=== PATIENT | female | born 1955 | race Caucasian/White ===

== ENCOUNTER 2019-12-27 12:35 | Emergency (ER) | payer BC, SELFPAY ==
[2019-12-27 12:50] VITALS: BP 105/51; PULSE 82; RESP 20; TEMP 37.3; O2SAT 99
--- NOTE | 2019-12-27 13:07 | ED.URI ---
HPI - URI/Sore Throat General Chief Complaint: Upper Respiratory Infection Stated Complaint: cough/sore throat/ear pn Time Seen by Provider: 12/27/19 13:00 Source: patient Mode of arrival: ambulatory Limitations: no limitations History of Present Illness HPI Narrative: Shyam Galloway is a 64 yo female with a PMH of Ann, who comes with dry cough, sinus congestion, L ear pain since Sat and is worsening. Related Data Home Medications Medication Instructions Recorded Confirmed mirabegron 50 mg tablet,extended 50 mg PO DAILY 11/12/19 12/27/19 release 24 hr Allergies Allergy/AdvReac Type Severity Reaction Status Date / Time mold Allergy Unknown Itchy eyes Verified 11/12/19 10:40 Penicillins Allergy Unknown Skin Verified 11/12/19 10:40 Reaction Sulfa (Sulfonamide Allergy Unknown Skin Verified 11/12/19 10:40 Antibiotics) Reaction sulfamethizole Allergy Unknown Skin Verified 11/12/19 10:40 Reaction SULFAMERAZINE (Generic Allergy Y Uncoded 11/12/19 10:40 Allergy) Review of Systems Review of Systems: Narrative: CONSTITUTIONAL: Denies fever, chills, sweats. EYES: Denies visual changes, redness, discharge. ENT: Hasrhinorrhea, congestion, sore throat, L otalgia. CARDIOVASCULAR: Denies chest pain, palpitations, edema. RESPIRATORY: Denies dyspnea, wheezing, dry cough GASTROINTESTINAL: Denies abdominal pain, nausea, vomiting, diarrhea. GENITOURINARY: Denies dysuria, hematuria, abnormal discharge SKIN: Denies rash or itching. NEUROLOGIC: Denies numbness, or focal weakness. PSYCHIATRIC: Denies anxiety or depression. PMFSH Family History Family History Father Family history of malignant neoplasm of skin Diabetes mellitus Family history of cardiovascular disease Mother Family history of malignant neoplasm of skin Sibling Carcinoma of colon Other Family history of elevated blood lipids Social History Social History Smoking status: Never smoker Alcohol intake: current Comments At time of signature, I agree with nursing past medical, surgical, social and family history. There is no relevant family history pertinent to the presenting complaint. Exam Narrative: Exam Narrative: GENERAL: This is a well-nourished, well-developed patient, in nmild distress. HEAD: normocephalic, atraumatic. EYES: PERRL. Sclera clear/white. Vision is grossly intact. EARS: External ears normal, . L ear erythema w effusion, Hearing grossly intact. NOSE: External nose normal with no obvious nasal discharge, nares withredness, no rhinorrhea. THROAT: Mucous membranes moist, posterior pharynx clear. NECK: Neck supple, non-tender CARDIOVASCULAR: Regular rate and rhythm without murmurs, gallops, or rubs. RESPIRATORY: Clear to auscultation. Breath sounds equal bilaterally. No wheezes, rales, or rhonchi. GASTROINTESTINAL: Abdomen soft, non-tender, SKIN: warm, intact with no suspicious lesions or rash, good texture and turgor. NEURO: awake, alert, and oriented to person, place and time. There were no obvious focal neurologic abnormalities. Steady gait EXTREMITIES: Normal range of motion. No edema. . BACK: Nontender without deformity or crepitance. . Course Course Emergency Course: started on cough medicine,prednisone Vital Signs Vital signs: Vital Signs Temperature 99.2 F 12/27/19 12:50 Pulse Rate 82 12/27/19 12:50 Respiratory Rate 20 12/27/19 12:50 Blood Pressure 105/51 L 12/27/19 12:50 Pulse Oximetry 99 12/27/19 12:50 Temperature 99.2 F 12/27/19 12:50 Pulse Rate 82 12/27/19 12:50 Respiratory Rate 20 12/27/19 12:50 Blood Pressure 105/51 L 12/27/19 12:50 Pulse Oximetry 99 12/27/19 12:50 MDM - URI/Sore Throat Differential Diagnosis Differential diagnosis: Likely upper respiratory infection, otitis media, sinusitis, viral infection and influenza Discharge
== END 2019-12-27 13:38 | disposition home or self-care (01) ==
PROVIDERS: Emergency Provider Nurse Practitioner; PCP Family Medicine
DX: J06.9 Acute upper respiratory infection, unspecified (principal); I73.00 Raynaud's syndrome without gangrene
CPT/HCPCS: 99213; G0463

== ENCOUNTER → 2022-08-21 09:07 | Outpatient (CLI) | payer MEDICARE, SELFPAY ==
--- NOTE | ~2022-08-21 | XR_ITS ---
EXAMINATION: XR hip BI 2V w AP pelvis DATE: 08/21/2022 09:30 INDICATION: Bilateral hip pain TECHNIQUE: AP view the pelvis and two views of each hip were obtained. COMPARISON: None. FINDINGS: Bone alignment is normal. There is no fracture. There is mild osteoarthritis of the hips. M ild to moderate osteitis pubis is noted. There is moderate lumbar spondylosis. IMPRESSION: 1. Mild osteoarthritis of the hips. Reviewed, dictated and finalized at location A.
--- NOTE | ~2022-08-21 | DEXA_ITS ---
Bone Density Report Name: LOBO CORMIER Age: 66 Sex: Female Ethnicity: White Date of : 1955 Indication: postmenopausal; screening for osteoporosis; height loss; Referring Provider: ABRAHAM EDMONDS Study: Bone densitometry was performed. Exam Date: August 21, 2022 Accession number: [id number] Bone Density: Region BMD T-score Z-score Classification AP Spine (L1-L4) 0.864 -1.7 0.1 Osteopenia Femoral Neck (Left) 0.680 -1.5 0.0 Osteopenia Total Hip (Left) 0.875 -0.5 0.7 Normal Femoral Neck (Right) 0.659 -1.7 -0.2 Osteopenia Total Hip (Right) 0.817 -1.0 0.2 Normal Total Hip Mean 0.846 -0.8 0.5 Normal World Health Organization criteria for BMD impression classify patients as: Normal (T-score at or above -1.0), Osteopenia (T-score between -1.0 and -2.5), or Osteoporosis (T-score at or below -2.5). 10-year Fracture Risk(1): Major Osteoporotic Fracture 8.4% Hip Fracture 1.1% Reported Risk Factors: [place] (), Neck BMD=0.659, BMI=20.2 (1) FRAX(R) Version 3.08. Fracture probability calculated for an untreated patient. Fracture probability may be lower if the patient has received treatment. Clinical Information Provided by Patient: Has used the following medications: Vitamin D, Calcium Patient maximum height was 67 Menopause Age: 56 Drinks caffeinated beverages Onset of menses at age 16 Number of children 3 Impression: The patient has low bone mass, based on the Total Spine T-score. The patient has an estimated ten-year risk of hip fracture of 1.1% and an estimated ten-year risk of major fracture of 8.4%, based on the WHO FRAX algorithm. Discussion: BONE DENSITY IS LOW AT ONE OR MORE SKELETAL SITES. This patient's lowest T-score is low at one or more skeletal sites. It meets the World Health Organization's (WHO) criteria for ?low bone mass? (T-score between -1.0 and -2.5). The patient's 10-year risk of fracture as calculated by FRAX is less than the threshold where pharmacological therapy is recommended by the National Osteoporosis Foundation (NOF). However, all treatment decisions require clinical judgment and consideration of individual patient factors, including patient preferences, comorbidities, previous drug use, risk factors not captured in the FRAX model (e.g., frailty, falls, vitamin D deficiency, increased bone turnover, interval significant decline in bone density) and possible under or overestimation of fracture risk by FRAX. The patient should follow a healthful lifestyle (good nutrition with adequate calcium and vitamin D, and appropriate weight-bearing exercise). Follow-Up: Consider repeating this study in 2 to 3 years to reassess this patient's status, or sooner if there is some new clinical indication. Reported by: REGINALD on 08/21/2022 9:49:00 AM.
== END ==
PROVIDERS: PCP Emergency Medicine; Visit Provider Emergency Medicine
DX: M25.559 Pain in unspecified hip (principal); Z78.0 Asymptomatic menopausal state; M16.0 Bilateral primary osteoarthritis of hip; M85.89 Other specified disorders of bone density and structure, multiple sites
CPT/HCPCS: 73521; 77080

== ENCOUNTER 2022-12-26 16:42 | Outpatient (CLI) | payer MEDICARE, SELFPAY ==
--- NOTE | ~2022-12-26 | MM_ITS ---
EXAMINATION: MM screening reginald BI w [facility] HISTORY: Screening mammogram TECHNIQUE: Craniocaudal and mediolateral oblique 3-D tomosynthesis images were obtained and synthetic 2-D images were generated. CAD analysis was submitted and interpreted. COMPARISON: No prior mammogram is available for comparison at this institution. BREAST PARENCHYMAL COMPOSITION: The breasts are heterogeneously dense, which may obscure small masses . FINDINGS: Biopsy marker on the left; history of prior benign left breast biopsy. There is no evidence of suspicious mass, calcification, or architectural distortion to suggest malignancy in either breas t. There has been no suspicious interval change. IMPRESSION: 1. No mammographic evidence of malignancy. 2. Recommend routine screening mammography in one year. BI-RADS Category 1: Negative Reviewed, dictated and finalized at location A. [facility] [employer]
== END 2022-12-26 16:43 | disposition home or self-care (01) ==
LOC: ANHIMG 16:46
PROVIDERS: PCP Emergency Medicine; Visit Provider Emergency Medicine
DX: Z12.31 Encounter for screening mammogram for malignant neoplasm of breast (principal)
CPT/HCPCS: 77063; 77067

== ENCOUNTER 2023-02-16 08:22 | Emergency (ER) | payer MEDICARE, SELFPAY ==
--- NOTE | 2023-02-16 08:28 | ED.URI ---
HPI - URI/Sore Throat General Chief Complaint: Upper Respiratory Infection Stated Complaint: congestion,cough Time Seen by Provider: 02/16/23 08:27 Source: patient Mode of arrival: ambulatory Limitations: no limitations History of Present Illness HPI Narrative: Shyam is a 67-year-old female patient presenting to the clinic today with complaints of cough and congestion x6 days. She reports no fever or chills. She is coughing up some yellow phlegm. Denies shortness of breath or chest pain. No known exposure to anybody with COVID, flu, or strep. Also reports some dizziness due to coughing and congestion. MD elicited complaint: sore throat and nasal congestion Related Data Home Medications Medication Instructions Recorded Confirmed latanoprost 0.005 % eye drops 1 drp EACH EYE QPM 05/18/21 09/17/22 Allergies Allergy/AdvReac Type Severity Reaction Status Date / Time mold Allergy Unknown Itchy eyes Verified 02/16/23 08:42 Penicillins Allergy Unknown Skin Verified 02/16/23 08:42 Reaction Sulfa (Sulfonamide Allergy Unknown Skin Verified 02/16/23 08:42 Antibiotics) Reaction Review of Systems Review of Systems: Pertinent positives per HPI. Patient denies any fever, chills, rash, headache, visual changes, shortness of breath, chest pain, palpitations, nausea, vomiting, diarrhea, constipation, abdominal pain, or any urinary issues. PMFSH Family History Family History Father Family history of malignant neoplasm of skin Diabetes mellitus Family history of cardiovascular disease Mother Family history of malignant neoplasm of skin Sibling Carcinoma of colon Other Family history of elevated blood lipids Social History Social History Smoking status: Never smoker Alcohol intake: current Comments At the time of my signature, I reviewed and agree with the nursing past medical, surgical, social, and family history. There is no relevant family history pertinent to the patient complaint. Exam Narrative: General: Well-developed, well nourished, in no apparent distress Head: Normocephalic, atraumatic Eyes: Pupils equally round and reactive to light bilaterally, EOM intact, sclera and conjunctive clear, no discharge, lids normal Ears: TMs intact and congested, ear canals clear, no drainage, grossly hearing normal. Nose: Nares patent, clear discharge, no inflammation, no sinus tenderness. Mouth: Oral pharynx without lesions or masses, good dentition, MMM. Postnasal drip Neck: Supple, trachea midline, no enlargement of anterior or posterior cervical nodes, no thyroid masses or goiter palpable. Cardio: Regular rate and rhythm, s1 and s2 normal, no murmur appreciated. Resp: Clear to auscultation bilaterally, no rhonchi, rales, wheezing or rubs Course Course Emergency Course: Portions of this record may have been created with voice recognition software. Level of Care: Express Care Visit Vital Signs Vital signs: Vital Signs Temperature 36.7 C 02/16/23 08:37 Pulse Rate 79 02/16/23 08:37 Respiratory Rate 16 02/16/23 08:37 Blood Pressure 109/59 L 02/16/23 08:37 Pulse Oximetry 99 02/16/23 08:37 Oxygen Delivery Room Air 02/16/23 08:37 Temperature 36.7 C 02/16/23 08:37 Pulse Rate 79 02/16/23 08:37 Respiratory Rate 16 02/16/23 08:37 Blood Pressure 109/59 L 02/16/23 08:37 Pulse Oximetry 99 02/16/23 08:37 Oxygen Delivery Room Air 02/16/23 08:37 Vital signs reviewed MDM - URI/Sore Throat MDM Narrative Medical decision making narrative: At the time of visit patient is resting comfortably on exam table. I suspect patient has upper respiratory infection with postnasal drip and eustachian tube dysfunction. Will send in prescription for some prednisone. Supportive measures were discussed with the patient she voiced understanding discharge inst
[2023-02-16 08:37] VITALS: BP 109/59; PULSE 79; RESP 16; TEMP 36.7; O2SAT 99
== END 2023-02-16 08:47 | disposition home or self-care (01) ==
PROVIDERS: Emergency Provider Nurse Practitioner Family; PCP Emergency Medicine
DX: J06.9 Acute upper respiratory infection, unspecified (principal); H69.93 Unspecified Eustachian tube disorder, bilateral; I34.1 Nonrheumatic mitral (valve) prolapse; H26.9 Unspecified cataract; H40.9 Unspecified glaucoma
CPT/HCPCS: 99213; G0463

== ENCOUNTER 2023-05-16 06:17 | Day surgery (SDC) | payer MEDICARE, SELFPAY ==
[2023-04-02 13:32] VITALS: BMI 19.5
[2023-04-26 10:20] VITALS: BMI 19.2
--- NOTE | 2023-05-15 15:30 | WPDANESEPPF ---
Anes - Initial Pre Proc Eval Procedure: Operation Date: 05/16/23 08:00 Proposed Procedures p Diagnostic Colonoscopy - Aron Rojas MD Date/Time: 05/15/23 15:30 Surgeon: Aron Rojas MD Pre Op Diagnosis: Family History of Colon Cancer Patient Data Age: 67 Gender: F Height: 1.68 m Weight: 54 kg Allergies Allergy/AdvReac Type Severity Reaction Status Date / Time No Known Allergies Allergy Verified 05/16/23 07:06 Home Medications Medication Instructions Recorded Confirmed Type mirabegron 50 mg tablet,extended 50 mg PO DAILY #90 tabs 09/02/20 05/16/23 Rx release 24 hr (Myrbetriq) latanoprost 0.005 % eye drops 1 drp EACH EYE QPM 05/18/21 04/26/23 History naproxen 250 mg tablet 250 mg PO BID 04/26/23 04/26/23 History nifedipine 30 mg tablet,extended 30 mg PO DAILY 04/26/23 05/16/23 History release 24 hr Patient hx anesthesia problems: none Family hx anesthesia problems: none Results Review: All pre-operative results and documents have been reviewed as part of the pre-operative evaluation. [facility] [place] Surgical History Surgical History (Updated 03/18/23 @ 10:20 by BENOIT Jaquez) Cataract (lens) fragments in eye following cataract surgery, bilateral H/O inguinal hernia repair History of bladder suspension procedure History of tonsillectomy Family History Family History Father Family history of malignant neoplasm of skin Diabetes mellitus Family history of cardiovascular disease Mother Family history of malignant neoplasm of skin Sibling Carcinoma of colon Other Family history of elevated blood lipids Social History Social History Smoking status: Never smoker Alcohol intake: current Drinks per week: 1 Substance use: never Substance use type: does not use Living arrangements: with family Spiritual care concerns: No Anes - Eval Final PreProcedure Day of Procedure 05/15/23 15:30 Patient weight: normal Heart: regular rate and rhythm Lungs: clear to auscultation and normal air movement Airway: Mallampati scale class II Neurological: alert and oriented Last oral intake: >/= 8 hours ASA classification: II Emergent: no Anesthetic plan: proceed Anesthesia type and monitoring: general GIVS Results Review: All pre-operative results and documents have been reviewed as part of the pre-operative evaluation. Informed Consent: The patient's anesthetic plan and its attendant risks and benefits were discussed with the patient/family/POA. Questions were solicited and answers provided to the satisfaction of the patient/family/POA.
[2023-05-16 07:05] VITALS: BP 144/82; PULSE 73; RESP 18; TEMP 37; O2SAT 100
[2023-05-16] MEDS: LACTATED RINGERS 1,000 ML 150 ML IV CONT (07:28)
--- NOTE | 2023-05-16 07:49 | PM.HPGS ---
History of Present Illness History of Present Illness Consent: Risks, benefits, and alternatives have been discussed and questions answered. Patient agrees to proceed with procedure. Chief complaint: Family History of Colon Cancer Narrative: Shyam Galloway is a 67 year old female with last colonoscopy 2017, sister had colon cancer Review of Systems Constitutional: Constitutional: Denies headache(s) and Denies weakness Eyes: Eyes: Denies blurry vision ENT: Reports Normal hearing present, Denies headache(s) and Denies neck pain Cardiovascular: Cardiovascular: Denies chest pain and Denies dyspnea Respiratory: Respiratory: Denies dyspnea Gastrointestinal: Gastrointestinal: Reports no additional gastrointestinal complaints Genitourinary: Genitourinary: Denies dysuria Musculoskeletal: Musculoskeletal: Denies neck pain Integumentary/Breasts: Skin/Breast: Denies dry skin Neurologic: Reports Normal hearing present, Denies headache(s) and Denies weakness Psychiatric: Psychiatric: Denies anxiety Endocrine: Endocrine: Denies change in body appearance Hematologic/Lymphatic: Hematologic/Lymphatic: Denies easy bleeding Allergic/Immunologic: Allergic/Immunologic: Denies urticaria PMFSH Past Medical History Medical History (Updated 05/16/23 @ 07:50 by Aron Rojas MD) Family history of colon cancer Surgical History Surgical History (Updated 03/18/23 @ 10:20 by BENOIT Jaquez) Cataract (lens) fragments in eye following cataract surgery, bilateral H/O inguinal hernia repair History of bladder suspension procedure History of tonsillectomy Family History Family History Father Family history of malignant neoplasm of skin Diabetes mellitus Family history of cardiovascular disease Mother Family history of malignant neoplasm of skin Sibling Carcinoma of colon Other Family history of elevated blood lipids Social History Social History Smoking status: Never smoker Alcohol intake: current Drinks per week: 1 Substance use: never Substance use type: does not use Living arrangements: with family Spiritual care concerns: No Meds Home Medications and Allergies Home Medications Medication Instructions Recorded Confirmed Type mirabegron 50 mg tablet,extended 50 mg PO DAILY #90 tabs 09/02/20 05/16/23 Rx release 24 hr (Myrbetriq) latanoprost 0.005 % eye drops 1 drp EACH EYE QPM 05/18/21 04/26/23 History naproxen 250 mg tablet 250 mg PO BID 04/26/23 04/26/23 History nifedipine 30 mg tablet,extended 30 mg PO DAILY 04/26/23 05/16/23 History release 24 hr Allergies Allergy/AdvReac Type Severity Reaction Status Date / Time No Known Allergies Allergy Verified 05/16/23 07:06 Vital Signs Vital Signs - 24 hr 05/16/23 07:05 Temperature 98.6 F Pulse Rate 73 Respiratory Rate 18 Blood Pressure 144/82 H Pulse Oximetry 100 Oxygen Delivery Room Air Exam Const: General: comfortable and no acute distress HENMT: Face/Nose/Sinus: Normal nares present Eyes: General: appearance normal, both eyes and all related structures Neck: Neck: no JVD Resp: Auscultation: clear to auscultation bilaterally Cardio: Rate: regular rate Rhythm: regular rhythm GI: Inspection: non-distended GI Palp: Yes Soft to palpation Skin: General skin exam: normal color Neuro: General: gait normal Speech: normal speech Extrem: General: normal to inspection Psych: Mental Status: mental status grossly normal Assessment and Plan Assessment and plan (1) Family history of colon cancer: Code(s): Z80.0 - Family history of malignant neoplasm of digestive organs Status: Acute Assessment and Plan: colonoscopy
[2023-05-16 08:19] VITALS: BP 95/57; PULSE 75; RESP 18; O2SAT 100
[2023-05-16 08:29] VITALS: BP 108/68; PULSE 72; RESP 16; O2SAT 98
[2023-05-16 08:39] VITALS: BP 118/65; PULSE 67; RESP 18; O2SAT 99
--- NOTE | 2023-05-16 10:03 | WPDANESPN ---
Anes - Prog Note Post-Op Date/Time: 05/16/23 10:03 Cardiovascular status: normal Respiratory status: normal Airway patency: baseline Mental status: baseline Post-Op hydration status: normal Vital Signs: Last Vital Signs Temp 37.0 C 05/16/23 07:05 Pulse 67 05/16/23 08:39 Resp 18 05/16/23 08:39 BP 118/65 05/16/23 08:39 Pulse Ox 99 05/16/23 08:39 O2 Del Method Room Air 05/16/23 08:39 Pain Score (VAS): 0 I/O: Intake & Output 05/15/23 05/16/23 05/16/23 23:59 07:59 15:59 Intake Total 350 Balance 350 Post-procedural complaints: none Patient Feedback: Patient satisfied with anesthetic care.
== END 2023-05-16 09:05 | disposition home or self-care (01) ==
PROVIDERS: PCP Emergency Medicine; Visit Provider Internal Medicine Gastroenterology
PROC: 0DJD8ZZ Inspection of Lower Intestinal Tract, Via Natural or Artificial Opening Endoscopic (ICD-10-PCS; CPT 45378; principal; 2023-05-16 08:00)
DX: Z80.0 Family history of malignant neoplasm of digestive organs (principal)
CPT/HCPCS: 45380

== ENCOUNTER 2023-05-16 08:00 | Outpatient (NON) | payer MEDICARE, SELFPAY | END 2023-05-16 08:01 | disposition home or self-care (01) | LOC: ANHLAB 05-17 07:55 | PROVIDERS: PCP Emergency Medicine; Visit Provider Internal Medicine Gastroenterology | DX: K63.5 Polyp of colon (principal); Z80.0 Family history of malignant neoplasm of digestive organs | CPT/HCPCS: 88305 ==

== ENCOUNTER → 2023-07-03 16:09 | Outpatient (CLI) | payer MEDICARE, SELFPAY ==
--- NOTE | ~2023-07-03 | XR_ITS ---
XR foot LT min 3V DATE: 07/03/2023 16:19 INDICATION: Medial left foot pain, distal tarsal area TECHNIQUE: 4 views COMPARISON: None FINDINGS: Slight plantar calcaneal enthesopathy. No fracture or dislocation, periosteal reaction or bone destruction. Os tibiale externum, normal variant. There are mild osteoarthritis at the first metatarsophalangeal j oint. IMPRESSION: Very mild osteoarthritis at first metatarsophalangeal joint. Slight plantar calcaneal enthesopathy Reviewed, dictated and finalized at location B.
== END ==
PROVIDERS: PCP Nurse Practitioner Family; Visit Provider Nurse Practitioner Family
DX: M19.072 Primary osteoarthritis, left ankle and foot (principal); M77.32 Calcaneal spur, left foot
CPT/HCPCS: 73630

== ENCOUNTER → 2023-07-05 08:39 | Outpatient (CLI) | payer MEDICARE, SELFPAY ==
--- NOTE | ~2023-07-05 | MR_ITS ---
EXAMINATION: MR hip RT wo con DATE: 07/05/2023 09:27 INDICATION: Right hip pain TECHNIQUE: Magnetic resonance imaging (MRI) of the right hip was performed without intravenous contr ast. Sequences included full-field axial PD-weighted FS FSE and T1-weighted FSE, coronal of the pelvi s with PD-weighted FS FSE, small field of view of the affected hip with axial PD-weighted FS FSE, sa gittal PD-weighted FS FSE and coronal PD weighted FS FSE. Additional radial T1-weighted FGR oriented orthogonal to the acetabular rim were obtained for evaluation of the labrum. COMPARISON: None FINDINGS: Bones/labrum/cartilage: No fracture, avascular necrosis or pathologic marrow replacing process. Severe lumbar spondylosis wit h 4 mm left lateral listhesis L4 on L5. Extensive degenerative tearing of the right acetabular labrum with prominent amorphous increased signal at the thickened and globular appearing anterosuperior to posterosuperior labrum. Mild right hip osteoarthritis with partial thickness cartilage loss and subar ticular cystlike change at the anterosuperior right acetabulum. Fluid: Minimal right hip joint effusion. There is also increased fluid signal overlying the greater trochant ers consistent with mild right and minimal left trochanteric bursitis. There is also mild right glute us minimus bursitis. Soft tissues: Normal and symmetric muscle bulk and signal in the pelvis and visualized proximal thighs. Mild right gluteus medius minimus tendinopathy without tear. The remaining bilateral gluteal tendons and the gustavo ateral iliopsoas and proximal hamstring tendons are normal. Fibroid uterus. Limited evaluation of vis ceral organs of the pelvis is otherwise unremarkable. No pathologically enlarged pelvic/inguinal lym phadenopathy. IMPRESSION: 1. Mild right hip osteoarthritis with diffuse degenerative tearing of the right acetabular labrum. 2. Mild bilateral trochanteric bursitis and mild right gluteus minimus bursitis with mild tendinopath y without tear at the right gluteus minimus tendon. 3. Fibroid uterus. 4. Severe lumbar spondylosis with 4 mm left lateral listhesis L4 on L5. Reviewed, dictated and finalized at location A. IMPRESSION: 1. Mild right hip osteoarthritis with diffuse degenerative tearing of the right acetabular labrum. 2. Mild bilateral trochanteric bursitis and mild right gluteus minimus bursitis with mild tendinopathy without tear at the right gluteus minimus tendon. 3. Fibroid uterus. 4. Severe lumbar spondylosis with 4 mm left lateral listhesis L4 on L5.
== END ==
PROVIDERS: PCP Emergency Medicine; Visit Provider Nurse Practitioner Family
DX: M16.11 Unilateral primary osteoarthritis, right hip (principal); M70.61 Trochanteric bursitis, right hip; D25.9 Leiomyoma of uterus, unspecified; M47.896 Other spondylosis, lumbar region
CPT/HCPCS: 73721

== ENCOUNTER 2024-02-05 09:40 | Outpatient (CLI) | payer MEDICARE, SELFPAY ==
[2024-02-05 12:12] LABS: Basophils Absolute Auto 0.1 K/mm3 (0.0-0.1); Basophils Percent Auto 0.9 % (0.2-1.2); Eosinophils Absolute Auto 0.3 K/mm3 (0-0.3); Eosinophils Percent Auto 4.7 % (0-4.4); Hematocrit 44.6 % (37.0-47.0); Hemoglobin 14.1 g/dL (12.0-15.0); Immature Granulocyte Absolute 0.01 K/mm3 (0.00-0.031); Immature Granulocyte Percent A 0.2 % (0-0.5); Lymphocytes Percent Auto 24.5 % (18.3-44.2); Mean Corpuscular HGB Conc 31.6 g/dl (32-36); Mean Corpuscular Hemoglobin 30.6 pg (26-34); Mean Corpuscular Volume 96.7 fl (80-100); Mean Platelet Volume 10.1 fl (7.4-10.4); Monocytes Absolute Auto 0.5 K/mm3 (0.1-0.6); Monocytes Percent Auto 8.9 % (2.6-8.5); Neutrophils Absolute Auto 3.2 K/mm3 (1.3-6.7); Neutrophils Percent Auto 60.8 % (45.5-73.1); Platelet Count Result 231 k/mm3 (150-375); Red Blood Count 4.61 M/mm3 (4.2-5.4); Red Cell Distribution Width 12.7 % (11.5-14.5); White Blood Count 5.3 K/mm3 (4.5-10.0)
[2024-02-05 12:46] LABS: Alanine Aminotransferase 20 U/L (6-35); Alkaline Phosphatase 69 U/L (38-126); Anion Gap 0 mmol/L (4-12); Aspartate Amino Transferase 48 U/L (14-36); Bilirubin,Total 0.7 mg/dL (0.2-1.3); Blood Urea Nitrogen 27 mg/dL (7-17); Calcium 9.8 mg/dL (8.4-10.2); Carbon Dioxide 34 mmol/L (22-30); Chloride 105 mmol/L (98-107); Estimated Glomerular Filt Rate > 60; Glucose 94 mg/dL (65-110); Potassium 4.2 mmol/L (3.4-5.0); Sodium 139 mmol/L (137-145)
== END 2024-02-05 09:41 | disposition home or self-care (01) ==
PROVIDERS: PCP Emergency Medicine; Visit Provider Nurse Practitioner Family
DX: R00.2 Palpitations (principal)
CPT/HCPCS: 36415; 80053; 84443; 85025

== ENCOUNTER 2024-05-22 14:07 | Outpatient (CLI) | payer MEDICARE, SELFPAY ==
--- NOTE | ~2024-05-22 | MM_ITS ---
EXAMINATION: MM screening reginald BI w [facility] HISTORY: Screening TECHNIQUE: Craniocaudal and mediolateral oblique 3-D tomosynthesis images were obtained and synthetic 2-D images were generated. CAD analysis was submitted and interpreted. COMPARISON: 12/26/2022 BREAST PARENCHYMAL COMPOSITION: Not dense: There are scattered areas of fibroglandular density. FINDINGS: There is no evidence of suspicious mass, calcification, or architectural distortion to sugg est malignancy in either breast. There has been no suspicious interval change. IMPRESSION: 1. No mammographic evidence of malignancy. 2. Recommend routine screening mammography in one year. BI-RADS Category 1: Negative Reviewed, dictated and finalized at location B.
== END 2024-05-22 14:08 | disposition home or self-care (01) ==
PROVIDERS: PCP Family Medicine; Visit Provider Family Medicine
DX: Z12.31 Encounter for screening mammogram for malignant neoplasm of breast (principal)
CPT/HCPCS: 77063; 77067

== ENCOUNTER 2024-10-08 11:10 | Outpatient (CLI) | payer MEDICARE, SELFPAY ==
[2024-10-08 13:14] LABS: Anion Gap 1 mmol/L (4-12); Blood Urea Nitrogen 36 mg/dL (7-17); Calcium 10.4 mg/dL (8.4-10.2); Carbon Dioxide 35 mmol/L (22-30); Chloride 103 mmol/L (98-107); Estimated Glomerular Filt Rate > 60; Glucose 99 mg/dL (65-110); Potassium 4.9 mmol/L (3.4-5.0); Sodium 139 mmol/L (137-145)
[2024-10-08 13:19] LABS: Vitamin D 25 Hydroxy 81.9 ng/mL
== END 2024-10-08 11:11 | disposition home or self-care (01) ==
LOC: ANHGOSHLAB 11:11
PROVIDERS: PCP Family Medicine; Visit Provider Family Medicine
DX: R25.2 Cramp and spasm (principal); M85.80 Other specified disorders of bone density and structure, unspecified site; Z78.0 Asymptomatic menopausal state
CPT/HCPCS: 36415; 80048; 82306

== ENCOUNTER 2025-06-01 09:56 | Outpatient (CLI) | payer MEDICARE, SELFPAY ==
--- NOTE | ~2025-06-01 | DEXA_ITS ---
Bone Density Report Name: LOBO CORMIER Age: 69 Sex: Female Ethnicity: White Date of : 1955 Indication: postmenopausal; screening for osteoporosis; height loss; Referring Provider: DEVAN CORNELIUS Study: Bone densitometry was performed. Exam Date: June 01, 2025 Accession number: [id number] Bone Density: Region BMD T-score Z-score Classification AP Spine(L1-L4) 0.879 -1.5 0.4 Osteopenia Femoral Neck (Left) 0.690 -1.4 0.2 Osteopenia Total Hip (Left) 0.909 -0.3 1.1 Normal Femoral Neck (Right) 0.656 -1.7 -0.1 Osteopenia Total Hip (Right) 0.798 -1.2 0.2 Osteopenia Total Hip Mean 0.854 -0.8 0.7 Normal World Health Organization criteria for BMD impression classify patients as: Normal (T-score at or above -1.0), Osteopenia (T-score between -1.0 and -2.5), or Osteoporosis (T-score at or below -2.5). 10-year Fracture Risk(1): Major Osteoporotic Fracture 8.9% Hip Fracture 1.4% Reported Risk Factors: [place] (), Neck BMD=0.656, BMI=20.1 (1) FRAX(R) Version 3.08. Fracture probability calculated for an untreated patient. Fracture probability may be lower if the patient has received treatment. Clinical Information Provided by Patient: Has used the following medications: Vitamin D, Calcium Patient maximum height was 67 Menopause Age: 54 Drinks caffeinated beverages Onset of menses at age 16 Number of children 3 Impression: The patient has low bone mass, based on the Right Femoral Neck T-score. The patient has an estimated ten-year risk of hip fracture of 1.4% and an estimated ten-year risk of major fracture of 8.9%, based on the WHO FRAX algorithm. Discussion: BONE DENSITY IS LOW AT ONE OR MORE SKELETAL SITES. This patient's lowest T-score is low at one or more skeletal sites. It meets the World Health Organization's (WHO) criteria for ?low bone mass? (T-score between -1.0 and -2.5). The patient's 10-year risk of fracture as calculated by FRAX is less than the threshold where pharmacological therapy is recommended by the National Osteoporosis Foundation (NOF). However, all treatment decisions require clinical judgment and consideration of individual patient factors, including patient preferences, comorbidities, previous drug use, risk factors not captured in the FRAX model (e.g., frailty, falls, vitamin D deficiency, increased bone turnover, interval significant decline in bone density) and possible under or overestimation of fracture risk by FRAX. The patient should follow a healthful lifestyle (good nutrition with adequate calcium and vitamin D, and appropriate weight-bearing exercise). Follow-Up: Consider repeating this study in 2 to 3 years to reassess this patient's status, or sooner if there is some new clinical indication. Reported by: REGINALD on 06/01/2025 10:36:00 AM. Reviewed, dictated and finalized at location A.
--- OUTSIDE RECORDS SUMMARY | 2025-06-01 10:08 | XMS_ITS | Clinical Summary ---
Author Organization [facility] Address [address] [place] [address] Phone Care Team Providers Care Stock Car Driver Name Role Phone Unavailable Primary Care Provider Unavailabl e Allergies Active Allergy Reactions Criticality Noted Date Comments Oxycodone-Acetaminophen Nausea and Vomiting Medium Sulfamethoxazole-Trimethoprim Rash Medium 2012 Medications fesoterodine SR 24 hour (TOVIAZ) 8 mg tablet Take 1 Tablet by mouth once daily. 90 Tablet 3 08/21/2018 4:43 PM CDT 8 Active mirabegron (MYRBETRIQ) 50 mg Extended Release 24 hour tablet Take 1 Tablet by mouth daily. 90 Tablet 3 08/13/2019 9:28 AM CDT 8 Active solifenacin (VESIcare) 10 mg Tablet Take 1 Tablet by mouth daily. 30 Tablet 3 11/14/2018 3:57 PM WEB SERVICES PROFESSIONAL 9 Active trospium (SANCTURA XR) 60 mg Extended Release 24 hour capsule Take 1 Capsule by mouth daily. 30 Capsule 6 02/12/2019 12:11 PM CDT 9 Active latanoprost (XALATAN) 0.005 % solution Instill 1 drop into both eyes nightly at bedtime as directed 7.5 mL 5 10/12/2019 2:21 PM WEB SERVICES PROFESSIONAL 9 Active NIFEdipine (PROCARDIA XL) 30 mg Extended Release 24 hour tablet Take 1 Tablet by mouth daily. 30 Tablet 3 10/12/2019 2:21 PM WEB SERVICES PROFESSIONAL 9 Active ofloxacin (OCUFLOX) 0.3 % solution Instill 1 drop into affected eye three times a day as directed To begin two days prior to surgery 5 mL 1 07/18/2019 3:07 PM CDT 9 Active prednisoLONE acetate (PRED FORTE) 1 % suspension Instill 1 drop into affected eye three times a day to begin after surgery 5 mL 1 07/18/2019 3:07 PM CDT 9 Active ketorolac tromethamine (ACULAR) 0.5 % solution Instill 1 drop into the operative eye 3 times daily beginning 2 days BEFORE surgery 10 mL 1 07/18/2019 3:07 PM CDT 9 Active omeprazole (PriLOSEC) 40 mg Capsule, Delayed Release(E.C.) Take one capsule by mouth once daily 90 Capsule 1 11/13/2019 8:26 AM WEB SERVICES PROFESSIONAL 0 Active mupirocin (BACTROBAN) 2 % Ointment Apply topically three times daily 22 Gram 11/13/2019 8:26 AM WEB SERVICES PROFESSIONAL 0 Active predniSONE (DELTASONE) 20 mg tablet Take two tablets by mouth daily for 5 days 10 Tablet 0 Active neomycin-polymyxi n-hydrocortisone (CORTISPORIN) 3.5-10,000-1 mg/mL-unit/mL-% otic solution Instill 4 drops in left ear every 8 hours for 10 days. 10 mL 0 Active benzonatate (TESSALON) 100 mg capsule Take one capsule by mouth twice daily as needed for cough. 30 Capsule 0 Active nitrofurantoin (MACROBID) 100 mg capsule Take 1 capsule by mouth every 12 hours with food for 7 days 14 Capsule 0 Active NIFEdipine (ADALAT CC) 30 mg Extended Release tablet Take 1 tablet by mouth daily. 90 Tablet 3 0 Active latanoprost (XALATAN) 0.005 % solution Administer 1 Drop in both eyes daily at bedtime as directed 7.5 mL 5 10/24/2020 2:37 PM WEB SERVICES PROFESSIONAL 0 Active Myrbetriq 50 mg Extended Release 24 hour tablet Take 1 Tablet (50 mg) by mouth daily. 90 Tablet 3 11/28/2020 12:56 PM WEB SERVICES PROFESSIONAL 1 Active NIFEdipine (PROCARDIA XL) 30 mg Extended Release 24 hour tablet Take 1 Tablet (30 mg) by mouth daily. 90 Tablet 3 07/27/2022 2:15 PM CDT 2 Active Myrbetriq 50 mg Extended Release 24 hour tablet Take 1 Tablet (50 mg) by mouth daily. 90 Tablet 3 06/08/2022 3:06 PM CDT 2 Active ciprofloxacin HCl (Cipro) 500 mg tablet Take 1 Tablet (500 mg) by mouth 2 times daily. 14 Tablet 01/20/2022 8:25 AM CDT 2 Active latanoprost (XALATAN) 0.005 % solution Administer 1 Drop in both eyes daily at bedtime as directed 2.5 mL 5 07/05/2022 3:08 PM CDT 2 Active Active Problems No known active problems Immunizations Immunization Administration Dates Next Due ([employer])(12 YR UP) COVID-19 VACCINE - EMERGENCY USE AUTHORIZATION, MRNA, [id number](PF) 30 MCG/0.3 ML IM SUSP 11/11/2020,10/21/2020 Influenza Seasonal Unspecifi ed Formulation IM 07/21/2022,08/17/2021,07/18/2020,2018,08/05/2018 Social History Tobacco Use Types Packs/Day Years Used Date Smoking Tobacco: Never Alcohol Use Standard Drinks/Week Comments Yes 0 (1 standard drink = 0.6 oz pur e alcohol) Comments No Sex and Gender Information Value Date Recorded Sex Assigned at Not on file Legal Sex Female 10:12 PM CDT Gender Identity Not on file Sexual Orientation Not on file Last Filed Vital Signs Vital Sign Reading Time Taken Comments Blood Pressure 110/67 04/18/2020 3:57 PM CDT Pulse 60 04/18/2020 3:57 PM CDT Temperature - - Respiratory Rate - - Oxygen Saturation - - Inhaled Oxygen Concentration - - Weight 61 kg (134 lb 6.4 oz) 04/18/2020 3:57 PM CDT Height 167.6 cm (5' 6) 04/18/2020 3:57 PM CDT Body Mass Index 21.69 04/18/2020 3:57 PM CDT Plan of Treatment Health Maintenance Due Date Last Done Comments DTAP/TDAP/TD VACCINES (1 - Tdap) 1976 COLORECTAL SCREENING 2002 Colorectal Cancer Screening 2002 FIT-DNA Q 3 years 2002 FIT/FOBT Q 1 year 2002 Flex Sig/CT Colonography Q 5 years 2002 PNEUMOCOCCAL VACCINE 50+ YEA RS (1 of 1 - PCV) 2007 ZOSTER VACCINE (1 of 2) 2007 OSTEOPOROSIS SCREENING 2022 BREAST CANCER SCREENING 09/19/2022 09/19/2021, 06/13 COVID-19 Vaccine (3 - 2023-2 5 season) 2024 11/11/2020, 10/21/2020 INFLUENZA VACCINE (#1) 2025 , 08/17/2021, 07/18/2020, Additional history exists RSV VACCINE (60+ or ) (1 - 1-dose 75+ series) 2032 Procedures Procedure Name Priority Date/Time Associated Diagnosis Comments MAMMO 3D SALLY SCREEN BILAT W OR WO CAD Routine 09/19/2021 3:46 PM WEB SERVICES PROFESSIONAL Breast cancer screening by mammogram from Last 3 Months or Most Recently Relevant to Health Maintenance Results * MAMMO SCRN BILAT 3D SALLY W OR WO CAD (09/19/2021 3:46 PM WEB SERVICES PROFESSIONAL) Anatomical Region Laterality Modality Breast Bilateral Mammography 09/19/2021 2:25 PM WEB SERVICES PROFESSIONAL Impressions 09/19/2021 4:59 PM WEB SERVICES PROFESSIONAL IMPRESSION: Negative bilateral screening mammogram. Recommend routine followup. OVERALL FINAL ASSESSMENT: BI-RADS CATEGORY 1: Negative DICTATION LOCATION: [facility] 09/19/2021 4:59 PM WEB SERVICES PROFESSIONAL BILATERAL SCREENING DIGITAL MAMMOGRAM WITH 3D TOMOSYNTHESIS AND CAD DATE: 09/19/2021 3:46 PM HISTORY: Annual screening study. COMPARISON: 06/13/2020, 09/19/2015. TECHNIQUE: A bilateral screening mammogram was performed. Low-dose full-field digital breast tomosynthesis examination was performed with 2D and 3D acquisitions. Examination is read in conjunction with computer aided detection. BREAST COMPOSITION: Scattered fibroglandular densities. FINDINGS: No new masses, suspicious calcifications, or areas of asymmetry or distortion are identified. The images were reviewed using the CAD system. Procedure Note Chantelle, Estefania T, MD - 09/19/2021 BILATERAL SCREENING DIGITAL MAMMOGRAM WITH 3D TOMOSYNTHESIS AND CAD DATE: 09/19/2021 3:46 PM HISTORY: Annual screening study. COMPARISON: 06/13/2020, 09/19/2015. TECHNIQUE: A bilateral screening mammogram was performed. Low-dose full-field digital breast tomosynthesis examination was performed with 2D and 3D acquisitions. Examination is read in conjunction with computer aided detection. BREAST COMPOSITION: Scattered fibroglandular densities. FINDINGS: No new masses, suspicious calcifications, or areas of asymmetry or distortion are identified. The images were reviewed using the CAD system. IMPRESSION: Negative bilateral screening mammogram. Recommend routine followup. OVERALL FINAL ASSESSMENT: BI-RADS CATEGORY 1: Negative DICTATION LOCATION: [facility] Beka Kaplan MD MAMMO ORDERABLES Final Result from Last 3 Months or Most Recently Relevant to Health [place] [address] RX [employer] Commercial [employer] Commercial RX [facility] [address] [facility] [id number]
--- OUTSIDE RECORDS SUMMARY | 2025-06-01 10:08 | XMS_ITS | Clinical Summary ---
Author Organization [facility] Address [address] [place] [id number] Care Team Providers Care Missing Persons Investigator Name Role Phone Catalina Costello MD Primary Care Provider + Allergies Active Allergy Reactions Criticality Noted Date Comments Oxycodone-Acetaminophen Nausea And Vomiting Medium Sulfamethoxazole-Trimethoprim Rash Medium 2012 Medications latanoprost (XALATAN) 0.005 % ophthalmic solution INSTILL 1 DROP IN BOTH EYES EVERY NIGHT AT BEDTIME Active Myrbetriq 50 mg tablet extended release 24 hr Take 1 tablet (50 mg total) by mouth daily Active NIFEdipine (NIFEdipine CC) 30 mg 24 hr tablet Take 1 tablet (30 mg total) by mouth daily 09/02/2020 Active naproxen (ALEVE) 220 mg tablet Take by mouth 2 (two) times a day with meals Active Active Problems No known active problems Immunizations Immunization Administration Dates Next Due Influenza, Quad, Adjuvantated, Intramuscular 10/2023 Surgical History Surgery Date Site/Laterality Comments APPENDECTOMY TONSILLECTOMY BLADDER SURGERY CATARACT EXTRACTION Medical History Medical History Date Comments Urinary tract infection Glaucoma Raynaud phenomenon Social History Tobacco Use Types Packs/Day Years Used Date Smoking Tobacco: Never Smokeless Tobacco: Never Tobacco Cessation:Counseling Given: Not Answered Comments Unknown Sex and Gender Information Value Date Recorded Sex Assigned at Not on file Legal Sex Female 11:11 AM CDT Gender Identity Not on file Sexual Orientation Not on file Obstetrics History Last Filed Vital Signs Vital Sign Reading Time Taken Comments Blood Pressure - - Pulse - - Temperature - - Respiratory Rate - - Oxygen Saturation - - Inhaled Oxygen Concentration - - Weight 55.3 kg (122 lb) 01/06/2025 1:34 PM MANAGER CONCRETE Height 165.7 cm (5' 5.25) 01/06/2025 1:34 PM CS T Body Mass Index 20.15 01/06/2025 1:34 PM MANAGER CONCRETE Plan of Treatment Health Maintenance Due Date Last Done Comments Colon Cancer Screening-Colonoscopy 1957 Depression Screening 1957 Fall Risk Assessment 1957 Hepatitis C Screening 1957 Osteoporosis Screening-Bone Density Scan 1957 DTaP/Tdap/Td Vaccine (1 - Tdap) 1968 Hepatitis B Screening 1975 Pneumococcal vaccine 65+ (1 of 1 - PCV) 2007 Zoster Vaccine (1 of 2) 2007 Well Visit 65+ 2022 Breast Cancer Screening-Mammogram 09/19/2022 09/19/2021, 09/19/2021, 06/13/2020 Covid-19 Vaccine (2023-2 5 season) 2024 08/15/2023, 07/30/2022, 08/24/2021, Additional history exists Influenza Vaccine (#1) 2025 08/15/2023 Insurance [facility] MEDIC[facility] ADVANTAGE [facility] Address: [facility] [address] [place] [address] [facility] MEDIC[facility] ADVANTAGE [facility] Address: [address] [address] Care Teams Missing Persons Investigator Relationship Specialty Start Date End Date Catalina Costello MD [address] [place] [address] [place] [address] PCP - General Family Medicine 10/29/24
--- OUTSIDE RECORDS SUMMARY | 2025-06-01 10:08 | XMS_ITS | Referral Summary ---
Author Organization [facility] Address [address] [place] [id number] Care Team Providers Care Hardware Engineering Manager Name Role Phone Catalina Costello MD Primary [...] Next Due Influenza, Quad, Adjuvantated, Intramuscular 10/2023 Social History Tobacco Use Types Packs/Day Years [...] 55.3 kg (122 lb) 01/06/2025 1:34 PM RETAIL SHIFT LEADER Height 165.7 cm (5' 5.25) 01/06/2025 1:34 PM CS T Body Mass Index 20.15 01/06/2025 1:34 PM RETAIL SHIFT LEADER Plan of Treatment Not on file Insurance [employer] MEDICARE ADVANTAGE [employer] MEDICARE ADVANTAGE Member Subscriber Plan / Payer ( fective 2022-Present) Name:Shyam Galloway Relation to Subscriber:Self Name:Shyam Galloway Payer ID:[id number] (NAIC) Type:[employer] MEDICARE Address: [place] [id number] [place] [phone] Care Teams Hardware Engineering Manager Relationship Specialty Start Date End Date Catalina Costello MD [address] [place] [address] [place] [address] PCP - General Family Medicine 10/29/24
== END 2025-06-01 09:57 | disposition home or self-care (01) ==
PROVIDERS: PCP Family Medicine; Visit Provider Family Medicine
DX: M85.89 Other specified disorders of bone density and structure, multiple sites (principal); Z78.0 Asymptomatic menopausal state; Z13.820 Encounter for screening for osteoporosis
CPT/HCPCS: 77080